=== PATIENT | female | born 1965 | race Caucasian/White ===

== ENCOUNTER 2019-03-29 17:44 | Inpatient (IN) | payer OTHER ==
[~2019-03-29] VITALS: Ht 172.7 cm; Wt 79.5 kg
[2019-03-29] MEDS ORDERED: AMLO10TA5 PO (18:28)
--- NOTE | 2019-03-29 18:39 | REP ---
Clinical: Trauma. Technique: Frontal view of the pelvis with neutral and cross-table lateral views of the left hip. Findings: Left femoral neck fracture identified. No further acute fracture or dislocation identified. The remainder of the osseous structures are normal for age. Surrounding soft tissues are unremarkable. Impression: Acute left femoral neck fracture. Electronically Signed by Juan Diego Concepcion MD 03/29/2019 06:31 P
[2019-03-29] MEDS ORDERED: NS 1,000 ML IV ONE (18:45)
[2019-03-29] MEDS ORDERED: fluoxetine (18:55)
[2019-03-29] MEDS ORDERED: VITAD1000T PO (18:55)
[2019-03-29] MEDS ORDERED: ZYRTTAB8 PO (18:55)
[2019-03-29] MEDS ORDERED: MORPHINE 4 MG/ML 1ML VIAL/SYRINGE (J2270) IV ONE (19:00)
[2019-03-29] MEDS ORDERED: NS 500 ML IV ONE (19:00)
[2019-03-29 19:02] LABS: BASO # 0.1 10^3/uL (0.0-0.2); BASO % 0.3 % (0.0-1.0); EOS % 0.1 % (0.0-3.0); HEMATOCRIT 39.7 % (36.0-47.0); HEMOGLOBIN 13.2 g/dl (12.0-15.5); LYMPH # 1.8 10^3/uL (1.5-4.5); LYMPH % 9.6 % (24.0-44.0); MEAN CORPUSCULAR HEMOGLOBIN 27.8 pg (27.0-33.0); MEAN CORPUSCULAR HGB CONC 33.2 g/dl (32.0-36.5); MEAN CORPUSCULAR VOLUME 83.6 fl (80.0-96.0); MONO # 0.8 10^3/uL (0.0-0.8); MONO % 3.9 % (0.0-5.0); NEUTROPHILS # 16.2 10^3/uL (1.8-7.7); NEUTROPHILS % 85.2 % (36.0-66.0); PLATELET COUNT, AUTOMATED 340 10^3/uL (150-450); RED BLOOD COUNT 4.75 10^6/uL (4.00-5.40)
[2019-03-29 19:31] LABS: INR 0.98; PROTHROMBIN TIME 13.1 SECONDS (12.1-14.4)
[2019-03-29 19:32] LABS: PARTIAL THROMBOPLASTIN TIME 30.9 SECONDS (25.4-37.6)
[2019-03-29 19:37] LABS: ALBUMIN 4.1 GM/DL (3.2-5.2); ALT/SGPT 20 U/L (12-78); BILIRUBIN,DIRECT 0.1 MG/DL (0.0-0.2); BILIRUBIN,TOTAL 0.4 MG/DL (0.2-1.0); BLOOD UREA NITROGEN 12 MG/DL (7-18); CALCIUM LEVEL 9.4 MG/DL (8.5-10.1); CARBON DIOXIDE LEVEL 22 MEQ/L (21-32); CHLORIDE LEVEL 107 MEQ/L (98-107); CREATININE FOR GFR 0.71 MG/DL (0.55-1.30); GLOMERULAR FILTRATION RATE > 60.0 (>51); GLUCOSE, FASTING 130 MG/DL (70-100); POTASSIUM SERUM 3.8 MEQ/L (3.5-5.1); SODIUM LEVEL 139 MEQ/L (136-145); TOTAL PROTEIN 7.4 GM/DL (6.4-8.2)
--- NOTE | 2019-03-29 19:42 | REP ---
Clinical: Acute femur fracture. Preoperative assessment . Comparison: None . Findings: The mediastinum and cardiac silhouette are stable and within normal limits for portable technique. The lung carreon are clear without acute consolidation, effusion, or pneumothorax. Skeletal structures are intact. Impression: No acute cardiopulmonary process appreciated. Electronically Signed by Juan Diego Concepcion MD 03/29/2019 07:33 P
--- NOTE | 2019-03-29 19:45 | ECGEPIP ---
[facility] - ED Test Date: 2019-03-29 Pat Name: TAYLOR GALINDO Department: Room: - Gender: Female Cna Hha: miguel : 1965 Requested By: Andre Guzman Order Number: [id number] Reading MD: Andre Guzman Measurements Intervals [place] Rate: 115 P: 45 ME: 160 QRS: 76 QRSD: 110 T: QT: 296 QTc: 411 Interpretive Statements SINUS TACHYCARDIA ST DEVIATION AND MODERATE T-WAVE ABNORMALITY, CONSIDER INFERIOR ISCHEMIA NO OLD ECG FOR COMPARISON Electronically Signed on 03-29-2019 19:44:47 EDT by Andre Guzman
--- NOTE | 2019-03-29 20:34 | REP ---
Clinical: Trauma. Femoral neck fracture. Technique: Axial noncontrast images from of the left hip with coronal and sagittal re-formations. Findings: Subtle transverse femoral neck fracture with impaction is appreciated. The remainder of the osseous structures appear intact and relatively normal for age. Surrounding musculature and soft tissue structures are relatively normal and without obvious muscular injury or significant hematoma. Visualized pelvic structures including visualized portions of the bladder, uterus/left adnexa, and sigmoid colon appear relatively normal. Impression: Transverse left femoral neck fracture with subtle impaction. Electronically Signed by Juan Diego Concepcion MD 03/29/2019 08:25 P
[2019-03-29] MEDS ORDERED: HEPARIN SOD (PORCINE) 5000 UNITS/ML VIAL SQ STA (20:54)
[2019-03-29] MEDS ORDERED: PERCOCET 5MG/325MG TAB PO PRN ×2 (21:00)
[2019-03-29] MEDS ORDERED: ONDANSETRON 4MG/2ML VIAL (J2405) IV PRN (21:00)
[2019-03-29] MEDS ORDERED: MORPHINE 4 MG/ML 1ML VIAL/SYRINGE (J2270) IV SCH (21:00)
[2019-03-29] MEDS ORDERED: VALT500T PO (21:47)
[2019-03-29] MEDS ORDERED: FLUO10TA2 PO (21:47)
[2019-03-29] MEDS ORDERED: VITA400T PO (21:47)
[2019-03-29] MEDS ORDERED: ACET25TA12 PO (21:48)
[2019-03-29 23:05] VITALS: BP 140/78
[2019-03-29] MEDS: LR 1,000 ML IV SCH (23:44)
[2019-03-29] MEDS: MORPHINE 4 MG/ML 1ML VIAL/SYRINGE (J2270) IV PRN (23:46)
--- NOTE | 2019-03-29 23:59 | HPEPDOC ---
General Date of Admission 03/29/19 Date of Service: March 29, 2019 Attending Physician: CRISTO TALBOT MD Chief Complaint The patient is a 54-year-old female admitted with a reason for visit of Fall Injury. History of Present Illness Consultation Report: Consultation requested by Dr Talbot from orthopedics. Reason For Consultation: Medical clearance prior to surgery History of Present Illness: this is a 54 year old female with PMH of Hypertension presented to the ED after a mechanical fall. She tripped and fell on her left hip this afternoon and then could not stand. In the ed it was found that she has left femoral neck fracture. She complains of pain in the left hip which was sharp before now is a dull ache after getting morphine . It is constantly present any movement of the leg is causing severe muscle spasm. there is no radiation of the pain down the leg. She is being admitted by the orthopedic service. Hospitalist group has been consulted for medical clearance. Home Medications Scheduled Amlodipine Besylate (Amlodipine Besylate) 10 Mg Tablet, 10 MG PO DAILY, (Reported) Cholecalciferol (Vitamin D3) (Vitamin D3) 400 Unit Tablet, 800 UNIT PO DAILY, (Reported) Scheduled PRN Acetaminophen/Diphenhydramine (Acetaminophen Pm Caplet) 1 Each Tablet, 2 TAB PO QHS PRN for SLEEP, (Reported) Cetirizine HCl/Pseudoephedrine (Zyrtec-D Tablet) 1 Each Tab.er.12h, 1 TAB PO DAILY PRN for ALLERGIES, (Reported) Fluoxetine HCl (Fluoxetine HCl) 10 Mg Tablet, 10 MG PO DAILY PRN for PMDD, (Reported) Valacyclovir HCl (Valtrex) 500 Mg Tablet, 500 MG PO DAILY PRN for COLD SORES, (Reported) Allergies Coded Allergies: No Known Allergies (Unverified , 03/29/19) Past Medical History Medical History hypertension Surgical History None Family History Significant Family History: Cancer (father lung acncer , other brest cancer), Hypertension (mother) Social History * Smoker: Denies Alcohol: rarely Drugs: denies A-FIB/CHADSVASC A-FIB History Current/History of A-Fib/PAF?: No Review of Systems Constitutional: Denies: Chills, Fever, Night Sweats Eyes: Denies: Pain, Vision change ENT: Denies: Head Aches, Ear Pain, Dysphagia Skin: Denies: Rash, Lesions, Breakdown Pulmonary: Denies: Dyspnea, Cough Cardiovascular: Denies: Chest Pain, Palpitations, Orthopnea, Paroxysmal Noc. Dyspnea, Lt Headedness Gastrointestinal: Denies: Nausea, Vomiting, Abdominal Pain, Diarrhea Hematologic: Denies: Bruising, Bleeding Excessively Musculoskeletal: Reports: Leg Pain, Joint Pain Neurological: Denies: Weakness, Numbness, Change in speech, Confusion Psych: Reports: Mood Normal; Denies: Depression, Memory Issues Physical Examination General Exam: Positive: Alert, Cooperative, Mild Distress (pain in left hip) Eye Exam: Positive: PERRLA, Conjunctiva & lids normal, EOMI; Negative: Sclera icteric ENT Exam: Positive: Atraumatic, Mucous membr. moist/pink, Pharynx Normal Neck Exam: Positive: Supple; Negative: JVD, thyromegaly Chest Exam: Positive: Clear to auscultation, Normal air movement Heart Exam: Positive: Rate Normal, Regular Rhythm, Normal S1, Normal S2; Negative: Murmurs, Rubs Abdomen Exam: Positive: Normal bowel sounds, Soft; Negative: Tenderness, Hepatospenomegaly Extremity Exam: Positive: Normal pulses; Negative: Clubbing, Cyanosis, Edema Skin Exam: Positive: Nl turgor and temperature; Negative: Breakdown, Lesion Vital Signs Vital Signs Date Time Temp Pulse Resp B/P (MAP) Pulse Ox O2 Delivery O2 Flow Rate FiO2 03/29/19 20:06 18 03/29/19 18:40 03/29/19 17:45 100.3 90 98 Room Air Laboratory Data Labs 24H Laboratory Tests 2 03/29/19 18:56: Immature Granulocyte % (Auto) 0.9, White Blood Count 19.0H, Red Blood Count 4.75, Hemoglobin 13.2, Hematocrit 39.7, Mean Corpuscular Volume 83.6, Mean Corpuscular Hemoglobin 27.8, Mean Corpuscular Hemoglobin Concent 33.2, Red Cell Distribution Width 14.4, Platelet Count 340, Neutrophils (%) (Auto) 85.2H, Lymphocytes (%) (Auto) 9.6L, Monocytes (%) (Auto) 3.9, Eosinophils (%) (Auto) 0.1, Basophils (%) (Auto) 0.3, Neutrophils # (Auto) 16.2H, Lymphocytes # (Auto) 1.8, Monocytes # (Auto) 0.8, Eosinophils # (Auto) 0.0, Basophils # (Auto) 0.1, Nucleated Red Blood Cells % (auto) 0.0, Prothrombin Time 13.1, Prothromb Time International Ratio 0.98, Activated Partial Thromboplast Time 30.9, Anion Gap 10, Glomerular Filtration Rate > 60.0, Calcium Level 9.4, Aspartate Amino Transf (AST/SGOT) 17, Alanine Aminotransferase (ALT/SGPT) 20, Alkaline Phosphatase 94, Total Bilirubin 0.4, Direct Bilirubin 0.1, Total Protein 7.4, Albumin 4.1, Albumin/Globulin Ratio 1.24 CBC/BMP Laboratory Tests 03/29/19 18:56 Red Blood Count 4.75, Mean Corpuscular Volume 83.6, Mean Corpuscular Hemoglobin 27.8, Mean Corpuscular Hemoglobin Concent 33.2, Red Cell Distribution Width 14.4, Neutrophils (%) (Auto) 85.2 H, Lymphocytes (%) (Auto) 9.6 L, Monocytes (%) (Auto) 3.9, Eosinophils (%) (Auto) 0.1, Basophils (%) (Auto) 0.3, Neutrophils # (Auto) 16.2 H, Lymphocytes # (Auto) 1.8, Monocytes # (Auto) 0.8, Eosinophils # (Auto) 0.0, Basophils # (Auto) 0.1 Assessment/Plan This is a 54 year old female with PMH of Hypertension presented to the ED after a mechanical fall. She tripped and fell on her left hip this afternoon and then could not stand. In the ed it was found that she has left femoral neck fracture. She is being admitted by the orthopedic service. Hospitalist group has been consulted for medical clearance. Medical clearance Patient has greater than 4 METS of physical activity No history of CAD or CHF or CVA or TIA or CKD or Diabetes EKG shows sinus tachycardia, XR no acute disease Patient is low cardiac risk for the proposed procedure Patient is medically optimized for the procedure. Left femoral neck fracture planned for surgery by ortho pain control and DVT prophylaxis by ortho Hypertension Now uncontrolled due to pain continue with amlodipine Leucocytosis with low grade fever this i think is due to pain and stress demargination. DVT prophylaxis as per ortho. Plan / VTE VTE Prophylaxis Ordered?: Yes RENA WORRELL MD March 29, 2019 21:29
[2019-03-30] MEDS: MORPHINE 4 MG/ML 1ML VIAL/SYRINGE (J2270) IV PRN ×4 (02:00→11:16)
[2019-03-30 06:00] VITALS: BP 129/63
[2019-03-30] MEDS: LR 1,000 ML IV SCH ×2 (09:54→18:10)
--- NOTE | 2019-03-30 09:54 | HPE ---
DATE OF ADMISSION: 03/30/2019 CHIEF COMPLAINT: Left hip pain. HISTORY OF PRESENT ILLNESS: This is a 54-year-old female who sustained a fall from standing yesterday afternoon. She presented to the emergency room and was found to have a valgus impacted femoral neck fracture. She was unable to bear weight after the injury. She denies pain elsewhere. She did not loose consciousness. She is overall healthy except for hypertension. PAST MEDICAL HISTORY: Hypertension. HOME MEDICATIONS: Amlodipine 10 mg by mouth daily and vitamin D 800 units by mouth daily. Patient also takes Fluoxetine 10 mg daily 2 weeks out of the month for premenstrual dysphoric disorder ALLERGIES: No known drug allergies. PAST SURGICAL HISTORY: None. SOCIAL HISTORY: The patient does not smoke. She lives near [place] with her . They have a 12-year-old son. She rarely drinks alcohol. PHYSICAL EXAMINATION: General, well appearing, alert and oriented in no acute distress. Vital signs, afebrile. Vital signs are stable. Chest, regular nonlabored breathing. Cardiovascular regular rate and rhythm. Abdomen is soft and nontender. Extremities in the left lower extremity skin is intact over the hip. There is mild swelling. Intact EHL/FHL/TA/TS. Normal sensation to light touch in the superficial peroneal, deep peroneal, tibial distribution. The foot is warm and well perfused. IMAGING: CT scan and radiographs of the left hip are reviewed. There is a valgus impacted femoral neck fracture with slight displacement. IMPRESSION: Left valgus impacted femoral neck fracture. PLAN: A long discussion was held with the patient. We did talk about her fracture type and the risk for AVN. Luckily this is only minimally displaced and would recommend a CRPP. She does understand that she could still go on to avascular necrosis and need a total hip replacement. We have discussed other risks and surgery which include a blood clot, infection, continued pain and stiffness, need for additional procedures. She has been medically cleared by the medical team. She is at low cardiac risk. We will try to get the surgery done as soon as possible as soon as the OR is available.
[2019-03-30 14:00] VITALS: BP 152/74
--- NOTE | 2019-03-30 14:44 | IPNPDOC ---
Date Seen The patient was seen on 03/30/19. Progress Note SUBJECTIVE: Patient tells me that she is doing well her pain is under control as far as possible otherwise patient denies chest pain, shortness breath, nausea, vomiting, fevers, chills OBJECTIVE PHYSICAL EXAMINATION: VITAL SIGNS: Please see below. GENERAL: Pleasant middle-age female appears younger than stated age sitting up in bed awake alert oriented speaking in complete sentences no acute distress HEENT: Moist mucous membranes no elevation and CVP CARDIOVASCULAR: S1 S2 regular no additional heart sounds appreciated. RESPIRATORY: Clear to auscultation bilaterally. ABDOMINAL: Bowel sounds present abdomen soft and nontender EXTREMITIES: No clubbing cyanosis or edema decreased mobility in the left lower extremity secondary to pain NEUROLOGICAL: Spontaneously moves all 4 extremities cranial 2 through 12 grossly intact no gross focal deficits appreciated PSYCHOLOGICAL: Appropriate LABORATORY DATA, MICROBIOLOGY: Please see below. IMAGING STUDIES: Hip and pelvis x-ray:Acute left femoral neck fracture Chest x-ray:No acute cardiopulmonary process appreciated Extremity CT:Transverse left femoral neck fracture with subtle impaction. DVT prophylaxis ordered?: As per orthopedic surgery ASSESSMENT AND PLAN: This is a 54-year-old female in her with left femoral neck fracture. PROBLEMS: 1. Left femoral neck fracture: Risk stratification previously completed by Dr. Baez DVT prophylaxis operative her Dutton catheter weight-bearing status and pain control all as per orthopedic surgery. 2. Hypertension: Home medications on hold while receiving IV narcotics continue to monitor and restart as needed. Some degree of her hypertension is likely related to pain 3. Mood disorder: Will restart her home fluoxetine. 4. Herpes simplex: Valtrex when necessary cold sores nonactive at this time 5. Vitamin D deficiency: Continue supplementation Thank you for this interesting consultation we will continue to follow along with you please call with any specific questions VS, I&O, 24H, Nettie Vital Signs/I&O Vital Signs Date Time Temp Pulse Resp B/P (MAP) Pulse Ox O2 Delivery O2 Flow Rate FiO2 03/30/19 14:00 98.6 86 16 152/74 (100) 97 03/29/19 22:53 Room Air I&O- Last 24 Hours up to 6 AM 03/30/19 06:00 Intake Total 900 ml Output Total 600 ml Balance 300 ml Laboratory Data 24H LABS Laboratory Tests 2 03/29/19 18:56: Immature Granulocyte % (Auto) 0.9, White Blood Count 19.0H, Red Blood Count 4.75, Hemoglobin 13.2, Hematocrit 39.7, Mean Corpuscular Volume 83.6, Mean Corpuscular Hemoglobin 27.8, Mean Corpuscular Hemoglobin Concent 33.2, Red Cell Distribution Width 14.4, Platelet Count 340, Neutrophils (%) (Auto) 85.2H, Lymphocytes (%) (Auto) 9.6L, Monocytes (%) (Auto) 3.9, Eosinophils (%) (Auto) 0.1, Basophils (%) (Auto) 0.3, Neutrophils # (Auto) 16.2H, Lymphocytes # (Auto) 1.8, Monocytes # (Auto) 0.8, Eosinophils # (Auto) 0.0, Basophils # (Auto) 0.1, Nucleated Red Blood Cells % (auto) 0.0, Prothrombin Time 13.1, Prothromb Time International Ratio 0.98, Activated Partial Thromboplast Time 30.9, Anion Gap 10, Glomerular Filtration Rate > 60.0, Calcium Level 9.4, Aspartate Amino Transf (AST/SGOT) 17, Alanine Aminotransferase (ALT/SGPT) 20, Alkaline Phosphatase 94, Total Bilirubin 0.4, Direct Bilirubin 0.1, Total Protein 7.4, Albumin 4.1, Albumin/Globulin Ratio 1.24 CBC/BMP Laboratory Tests 03/29/19 18:56 Red Blood Count 4.75, Mean Corpuscular Volume 83.6, Mean Corpuscular Hemoglobin 27.8, Mean Corpuscular Hemoglobin Concent 33.2, Red Cell Distribution Width 14.4, Neutrophils (%) (Auto) 85.2 H, Lymphocytes (%) (Auto) 9.6 L, Monocytes (%) (Auto) 3.9, Eosinophils (%) (Auto) 0.1, Basophils (%) (Auto) 0.3, Neutrophils # (Auto) 16.2 H, Lymphocytes # (Auto) 1.8, Monocytes # (Auto) 0.8, Eosinophils # (Auto) 0.0, Basophils # (Auto) 0.1 FABRICIO HIGH MD March 30, 2019 14:44
[2019-03-30] MEDS ORDERED: FLUoxetine 10 MG CAP PO PRN (14:45)
[2019-03-30] MEDS ORDERED: ceFAZolin 2 GM/D5W 50 ML IV BAG (J0690 PER 500MG) As Ordered ONE (15:02)
[2019-03-30] MEDS ORDERED: MIDAZOLAM INJ 2 MG/2 ML VIAL (J2250) As Ordered ONE (15:30)
[2019-03-30] MEDS ORDERED: ONDANSETRON 4MG/2ML VIAL (J2405) As Ordered ONE (15:30)
[2019-03-30] MEDS ORDERED: SUGAMMADEX SODIUM 500 MG/5 ML VIAL (BRIDION) As Ordered ONE (15:30)
[2019-03-30] MEDS ORDERED: ROCURONIUM BROMIDE 50 MG/5 ML VIAL As Ordered ONE (15:30)
[2019-03-30] MEDS ORDERED: dexameTHASONE 4 MG/ML 1ML VIAL (J1100) As Ordered ONE (15:30)
[2019-03-30] MEDS ORDERED: PROPOFOL 200 MG/20 ML VIAL As Ordered ONE (15:30)
[2019-03-30] MEDS ORDERED: fentaNYL 250 MCG/5 ML INJECTION (J3010) As Ordered ONE (15:30)
[2019-03-30] MEDS ORDERED: LIDOCAINE 2% INJ 100 MG/5 ML SDV (FOR ANES.) As Ordered ONE (15:30)
[2019-03-30] MEDS ORDERED: HYDROmorphone HCL 2 MG/ML 1ML VIAL (J1170) As Ordered ONE (15:37)
[2019-03-30] MEDS ORDERED: ePHEDrine SULFATE 25 MG/5 ML(5MG/ML) SYRINGE As Ordered ONE ×2 (15:39→15:43)
[2019-03-30] MEDS ORDERED: BUPIVACAINE HCL 0.5% 10 ML VIAL As Ordered ONE (16:23)
--- NOTE | 2019-03-30 16:47 | REP ---
Clinical: Status post open reduction and fixation. Technique: Intraoperative fluoroscopic imaging using portable C-arm technique. Findings: The patient is status post satisfactory open reduction and fixation/pinning of left femoral neck fracture. Total fluoroscopic time 2 minutes 49 seconds. Impression: Satisfactory open reduction and fixation for femoral neck fracture. Electronically Signed by Juan Diego Concepcion MD 03/30/2019 04:38 P
[2019-03-30] MEDS ORDERED: ONDANSETRON 4MG/2ML VIAL (J2405) IV PRN ×2 (17:00→18:00)
[2019-03-30] MEDS ORDERED: LR 1,000 ML IV SCH (17:00)
[2019-03-30] MEDS ORDERED: fentaNYL 100 MCG/2 ML INJECTION (J3010) IV PRN (17:00)
[2019-03-30] MEDS ORDERED: PERCOCET 5MG/325MG TAB PO PRN (17:00)
[2019-03-30] MEDS ORDERED: HYDROMORPHONE HCL 0.5 MG/ 0.5 ML SYRINGE (J1170 PER 1) IV PRN (17:00)
[2019-03-30] MEDS ORDERED: PERCOCET 5MG/325MG TAB As Ordered ONE (17:18)
--- NOTE | 2019-03-30 17:18 | REP ---
Clinical: Status post fixation. Technique: Portable AP and cross-table lateral views. Findings: Three pins spanning the left femoral neck fracture. Overlying postsurgical changes are appreciated. Satisfactory alignment at the fracture line noted. Impression: Status post pinning for femoral neck fracture. Electronically Signed by Juan Diego Concepcion MD 03/30/2019 05:09 P
[2019-03-30] MEDS ORDERED: FLEET ENEMA PR PRN (17:30)
[2019-03-30] MEDS ORDERED: diphenhydrAMINE 25 MG CAP PO PRN (17:30)
[2019-03-30] MEDS ORDERED: ACETAMINOPHEN TAB 650MG DOSE (2X325MG) PO PRN (17:30)
[2019-03-30 17:45] VITALS: BP 146/73
[2019-03-30] MEDS ORDERED: MORPHINE 4 MG/ML 1ML VIAL/SYRINGE (J2270) IV PRN (18:00)
[2019-03-30] MEDS: VITAMIN D (CHOLECALCIFEROL) 400 INTERNATIONAL UNITS TAB PO SCH (18:10)
[2019-03-30 18:15] VITALS: BP 147/71
[2019-03-30 18:45] VITALS: BP 146/70
[2019-03-30] MEDS: IBUPROFEN 600 MG TAB PO PRN (21:14)
[2019-03-30 22:00] VITALS: BP 150/75
[2019-03-31 02:00] VITALS: BP 134/68
[2019-03-31 06:00] VITALS: BP 119/59; O2SAT 98
[2019-03-31] MEDS ORDERED: PERCOCET 5MG/325MG TAB PO PRN (06:00)
[2019-03-31 07:54] LABS: BLOOD UREA NITROGEN 6 MG/DL (7-18); CALCIUM LEVEL 8.3 MG/DL (8.5-10.1); CARBON DIOXIDE LEVEL 26 MEQ/L (21-32); CHLORIDE LEVEL 107 MEQ/L (98-107); CREATININE FOR GFR 0.62 MG/DL (0.55-1.30); GLOMERULAR FILTRATION RATE > 60.0 (>51); GLUCOSE, FASTING 103 MG/DL (70-100); POTASSIUM SERUM 3.6 MEQ/L (3.5-5.1); SODIUM LEVEL 139 MEQ/L (136-145)
[2019-03-31] MEDS ORDERED: PERC5TAB12 PO (08:05)
[2019-03-31] MEDS ORDERED: XARE10TA PO (08:05)
[2019-03-31] MEDS: VITAMIN D (CHOLECALCIFEROL) 400 INTERNATIONAL UNITS TAB PO SCH (08:18)
[2019-03-31] MEDS ORDERED: MIRALAX *UNIT DOSE* 17GM PACKET PO SCH (09:00)
[2019-03-31] MEDS ORDERED: MOM 30ML SUSPENSION UDC PO SCH (09:00)
--- NOTE | 2019-03-31 09:16 | RO ---
DATE OF PROCEDURE: 03/30/2019 PREOPERATIVE DIAGNOSIS: Left valgus impacted femoral neck fracture. POSTOPERATIVE DIAGNOSIS: Left valgus impacted femoral neck fracture. OPERATIVE PROCEDURE: Closed reduction percutaneous pinning left hip. SURGEON: Marino Talbot MD FOREPART RASPER: None. ANESTHESIA: General. IV FLUIDS: Lactated Ringer's. ESTIMATED BLOOD LOSS: 5 mL IMPLANTS: Synthes 6.5 mm partially threaded cannulated screws, 85 mm in length, two of them, two R32 mm threads, one is 16 mm threads. CLOSURE: Nylon. DESCRIPTION OF PROCEDURE Patient identified in preoperative holding area. The left hip marked by myself. She was brought to the operating room, carefully placed supine on a fracture table. General anesthesia then induced. She received appropriate IV antibiotics within 1 hour of incision. The left foot was secured to the traction boot and well padded. The down leg was secured to the central beam of the OR in a scissored position and well padded. Preliminary time-out performed per hospital protocol. Large C-arm was then used to ensure that there was no further fracture displacement and I was able to confirm this remained in good alignment for a hip pinning. There was some valgus impaction. Minimal posterior displacement on the lateral. The left hip was then prepped and draped in normal sterile fashion. Fracture table drape was placed. real time operator out was then performed per hospital protocol. Large C-arm was then used to determine the appropriate start point for the inferior screw. This threaded guidewire was placed percutaneously and then advanced with the guide pin. 3 cm incision made with a #10 blade. Guide pin was repositioned on the AP and lateral views to ensure it was along the calcar inferiorly and a somewhat oblique trajectory to ensure that the screw would not be distal to the lesser trochanter. Appropriate position confirmed on AP and lateral views. Next, I placed two additional threaded guide pins, one anterior-superior; the other posterior-superior ensuring a good spread on both AP and lateral views. Next, the depth gauge was used and it was felt that 85 mm screws would be appropriate for all three. The cannulated reamer was then used to drill just the lateral cortex for an opening. I placed the inferior screw first part ay on power, completed by hand. This had excellent fixation. The other two screws were also placed over their corresponding guidewires and had excellent fixation. All three were final tightened. Guidewires were removed and final x-rays, AP, lateral and multiple obliques were taken showing well-positioned cannulated screws in an inverted triangle configuration. The incision was then extensively irrigated. It was closed in a layered fashion with #2-0 Vicryl and then a running #3-0 nylon. I injected 10 mL of 0.5% Marcaine without epinephrine for local anesthetic. Sterile dressing was applied. She was carefully placed back onto the hospital bed, extubated and then transferred to PACU in stable condition. All counts correct times two. Complications none. DISPOSITION The patient be weightbearing as tolerated with crutches. She will need vitamin D. She will have Xarelto for DVT prophylaxis for a month. She will be following up in [place] and I have contacted a colleague that has agreed to follow her in [facility] for her postoperative care. She will be in the hospital and received a 24 hours antibiotic prophylaxis.
[2019-03-31 10:00] VITALS: BP 133/71
[2019-03-31] MEDS: IBUPROFEN 600 MG TAB PO PRN (10:16)
--- NOTE | 2019-03-31 12:37 | IPNPDOC ---
Date Seen The patient was seen on 03/31/19. Progress Note SUBJECTIVE: Patient tells me that she is feeling much better she denies headache blurry vision and states that her pain is under control. Otherwise patient denies chest pain, shortness breath, nausea, vomiting, fevers, chills OBJECTIVE PHYSICAL EXAMINATION: VITAL SIGNS: Please see below. GENERAL: Pleasant middle-age female appears younger than stated age sitting up in bed awake alert oriented comfortable today HEENT: Moist mucous membranes no elevation and CVP CARDIOVASCULAR: S1 S2 regular no additional heart sounds appreciated. RESPIRATORY: Clear to auscultation bilaterally. ABDOMINAL: Bowel sounds present abdomen soft and nontender EXTREMITIES: No clubbing cyanosis or edema dressings clean dry and intact NEUROLOGICAL: Spontaneously moves all 4 extremities cranial 2 through 12 grossly intact no gross focal deficits appreciated PSYCHOLOGICAL: Appropriate LABORATORY DATA, MICROBIOLOGY: Please see below. IMAGING STUDIES: Hip and pelvis x-ray:Acute left femoral neck fracture Chest x-ray:No acute cardiopulmonary process appreciated Extremity CT:Transverse left femoral neck fracture with subtle impaction. DVT prophylaxis ordered?: As per orthopedic surgery ASSESSMENT AND PLAN: This is a 54-year-old female in her with left femoral neck fracture. PROBLEMS: 1. Left femoral neck fracture: DVT prophylaxis weight-bearing status and pain control all as per orthopedic surgery. 2. Hypertension: Controlled, Home medications on hold while receiving narcotics continue to monitor and restart as needed. Some degree of her hypertension is likely related to pain 3. Mood disorder: Continue home fluoxetine. 4. Herpes simplex: Valtrex when necessary cold sores nonactive at this time 5. Vitamin D deficiency: Continue supplementation Thank you for this interesting consultation we will continue to follow along with you please call with any specific questions VS, I&O, 24H, [facility] Vital Signs/I&O Vital Signs Date Time Temp Pulse Resp B/P (MAP) Pulse Ox O2 Delivery O2 Flow Rate FiO2 03/31/19 10:00 98.2 82 18 133/71 (91) 97 03/31/19 06:00 Room Air 03/30/19 18:15 2.0 I&O- Last 24 Hours up to 6 AM 03/31/19 06:00 Intake Total 3411 ml Output Total 1555 ml Balance 1856 ml Laboratory Data 24H LABS Laboratory Tests 2 03/31/19 07:04: Anion Gap 6L, Glomerular Filtration Rate > 60.0, Blood Urea Nitrogen 6L, Creatinine 0.62, Sodium Level 139, Potassium Level 3.6, Chloride Level 107, Carbon Dioxide Level 26, Calcium Level 8.3L CBC/BMP Laboratory Tests 03/31/19 07:04 Calcium Level 8.3 L FABRICIO HIGH MD March 31, 2019 12:37
[2019-03-31] MEDS ORDERED: RIVAROXABAN 10 MG TAB (XARELTO) PO SCH (18:00)
== END 2019-03-31 12:45 | disposition home or self-care (01) | DRG 308 ==
LOC: M ED 17:44 → M ED INP 20:54 → M MS5PR 23:05
PROVIDERS: ADMIT Orthopaedic Surgery; ATTEND Orthopaedic Surgery
PROC: 0QS734Z Reposition Left Upper Femur with Internal Fixation Device, Percutaneous Approach (ICD-10-PCS; principal; 2019-03-30 13:00)
DX: S72.092A Other fracture of head and neck of left femur, initial encounter for closed fracture (principal); I10 Essential (primary) hypertension; W18.30XA Fall on same level, unspecified, initial encounter; Y92.009 Unspecified place in unspecified non-institutional (private) residence as the place of occurrence of the external cause; Z79.899 Other long term (current) drug therapy; E55.9 Vitamin D deficiency, unspecified